=== PATIENT | male | born 1980 | race Caucasian/White ===

== ENCOUNTER 2017-01-20 13:58 | Emergency (ER) | payer OTHER ==
[~2017-01-20] VITALS: Ht 177.8 cm; Wt 104.5 kg
[2017-01-20 14:34] VITALS: BP 135/90
== END 2017-01-20 17:24 | disposition home or self-care (01) ==
LOC: EMS 13:59
DX: S39.012A Strain of muscle, fascia and tendon of lower back, initial encounter (principal); I10 Essential (primary) hypertension; F17.210 Nicotine dependence, cigarettes, uncomplicated; F15.10 Other stimulant abuse, uncomplicated; F12.10 Cannabis abuse, uncomplicated; Z98.890 Other specified postprocedural states; X58.XXXA Exposure to other specified factors, initial encounter; Y93.89 Activity, other specified; Y92.89 Other specified places as the place of occurrence of the external cause; Y99.9 Unspecified external cause status
CPT/HCPCS: 99281

== ENCOUNTER 2018-04-08 11:19 | Emergency (ER) | payer SELFPAY ==
[~2018-04-08] VITALS: Ht 177.8 cm; Wt 104.5 kg
[2018-04-08 12:25] VITALS: BP 144/98
== END 2018-04-08 13:13 | disposition home or self-care (01) ==
LOC: EMS 11:20
DX: G56.03 Carpal tunnel syndrome, bilateral upper limbs (principal); H00.14 Chalazion left upper eyelid; F12.90 Cannabis use, unspecified, uncomplicated; F15.90 Other stimulant use, unspecified, uncomplicated; F17.210 Nicotine dependence, cigarettes, uncomplicated
CPT/HCPCS: 99406

== ENCOUNTER 2018-06-15 05:55 | Emergency (ER) | payer SELFPAY ==
[~2018-06-15] VITALS: Ht 177.8 cm; Wt 97.7 kg
[2018-06-15 08:20] VITALS: BP 146/93
== END 2018-06-15 08:27 | disposition home or self-care (01) ==
LOC: EMS 05:56
DX: S00.81XA Abrasion of other part of head, initial encounter (principal); F12.90 Cannabis use, unspecified, uncomplicated; F15.90 Other stimulant use, unspecified, uncomplicated; F17.210 Nicotine dependence, cigarettes, uncomplicated; Y35.893A Legal intervention involving other specified means, suspect injured, initial encounter; Y93.89 Activity, other specified; Y92.89 Other specified places as the place of occurrence of the external cause; Y99.8 Other external cause status
CPT/HCPCS: 70450; 74018; 93005

== ENCOUNTER 2018-07-22 01:59 | Emergency (ER) | payer SELFPAY ==
[~2018-07-22] VITALS: Ht 177.8 cm; Wt 100.0 kg
[2018-07-22] MEDS ORDERED: BACITRACIN 0.9 GM PACKET OINTMENT TP ONE (03:00)
[2018-07-22 03:32] VITALS: BP 132/98
== END 2018-07-22 03:46 | disposition home or self-care (01) ==
LOC: EMS 01:59
DX: S31.030A Puncture wound without foreign body of lower back and pelvis without penetration into retroperitoneum, initial encounter (principal); S60.416A Abrasion of right little finger, initial encounter; I10 Essential (primary) hypertension; F12.90 Cannabis use, unspecified, uncomplicated; F15.90 Other stimulant use, unspecified, uncomplicated; F17.210 Nicotine dependence, cigarettes, uncomplicated; Y35.893A Legal intervention involving other specified means, suspect injured, initial encounter; Y93.89 Activity, other specified; Y92.89 Other specified places as the place of occurrence of the external cause; Y99.8 Other external cause status
CPT/HCPCS: 93005

== ENCOUNTER 2023-07-26 11:08 | Emergency (ER) | payer OTHER ==
[~2023-07-26] VITALS: Ht 177.8 cm; Wt 102.3 kg
[2023-07-26 11:29] VITALS: TEMP 98.2
[2023-07-26 14:48] LABS: BASOPHILS % (AUTO) 0.8 % (0.0-2.0); EOSINOPHILS % (AUTO) 2.1 % (1.0-6.0); HEMATOCRIT 44.8 % (41-53); HEMOGLOBIN 15.3 g/dL (13.5-17.5); LYMPHOCYTES # (AUTO) 2.9 K/uL (1.0-4.8); MEAN CORPUSCULAR HEMOGLOBIN 30.7 pg (26.0-34.0); MEAN CORPUSCULAR HGB CONC 34.1 G/dL (31.0-37.0); MEAN CORPUSCULAR VOLUME 90 fL (80-100); MONOCYTES % (AUTO) 8.4 % (2.0-9.0); NEUTROPHILS # (AUTO) 7.2 K/uL (1.8-7.7); NEUTROPHILS % (AUTO) 63.7 % (40.0-70.0); PLATELET COUNT (AUTO) 279 K/uL (150-450); RED BLOOD CELL COUNT(AUTO) 4.98 MIL/uL (4.50-5.90); RED CELL DISTRIBUTION WIDTH 13.3 % (11.5-14.5); WHITE BLOOD COUNT (AUTO) 11.4 K/uL (4.5-11.0)
[2023-07-26 15:00] LABS: ANION GAP 8 mmol/L (8-16); CALCIUM, TOTAL 8.7 mg/dL (8.8-10.5); CARBON DIOXIDE 26 mmol/L (22-29); CHLORIDE 105 mmol/L (98-107); CREATININE 1.02 mg/dL (0.60-1.30); GLOMERULAR FILTR. RATE CALC > 60 mL/min (>60); GLUCOSE,RANDOM 92 mg/dL (70-110); POTASSIUM 3.9 mmol/L (3.5-5.1); SODIUM SERUM 139 mmol/L (136-145); UREA NITROGEN, BLOOD 23 mg/dL (7-18)
[2023-07-26 15:05] LABS: B-TYPE NATRIURETIC PEPTIDE 6 pg/mL (0-100)
[2023-07-26 15:06] LABS: ALANINE AMINOTRANSFERASE 30 U/L (12-78); ALBUMIN 3.4 g/dL (3.4-5.0); ALKALINE PHOSPHATASE 123 U/L (46-116); ASPARTATE AMINOTRANSFERASE 15 U/L (15-37); BILIRUBIN,TOTAL 0.5 mg/dL (0.1-1.0); TOTAL PROTEIN, SERUM 6.9 g/dL (6.4-8.2)
[2023-07-26 15:08] LABS: TROPONIN I-HIGH SENSITIVITY 34 ng/L (<76)
[2023-07-26] MEDS ORDERED: ACET-66 PO (15:31)
[2023-07-26] MEDS ORDERED: IBUP-1554 PO (15:31)
[2023-07-26 15:41] VITALS: BP 142/88; PULSE 74; RESP 19
== END 2023-07-26 15:44 | disposition home or self-care (01) ==
LOC: EMS 11:08
DX: R51.9 Headache, unspecified (principal); R06.83 Snoring; I10 Essential (primary) hypertension; F17.210 Nicotine dependence, cigarettes, uncomplicated; F12.90 Cannabis use, unspecified, uncomplicated; F15.90 Other stimulant use, unspecified, uncomplicated
CPT/HCPCS: 70450; 71045; 80053; 83880; 84484; 85025; 93005; 99285; 36415-L1; 36415-TC